=== PATIENT | female | born 1970 | race Caucasian/White ===

== ENCOUNTER 2018-11-22 09:12 | Day surgery (SDC) | payer OTHER, SELFPAY ==
--- NOTE | 2018-11-22 | PATH_ITS ---
[facility] Accession Number: [id number] . 01 Material submitted: . PART A: cecum - CECAL POLYP PART B: colon - POLYP AT 60 CM PART C: colon - POLYP AT 40 CM PART D: colon - POLYP AT 15 CM X2 . 01 Clinical history: . SCREENING COLONOSCOPY . 02 Diagnosis: A. Cecum, Polyp, Biopsy: Tubular adenoma. . B. Colon, Polyp at 60 cm, Biopsy: Colonic mucosa with no diagnostic abnormality, consistent with polypoid redundancy. Negative for dysplasia and malignancy. . C. Colon, Polyp at 40 cm, Biopsy: Hyperplastic polyp. . D. Colon, Polyp at 15 cm x2, Biopsy: Hyperplastic polyp. Mucosal prolapse polyp. MRV/11/25/2018 . 02 Electronically signed: . Patricia Suazo MD, Pathologist NPI- [id number] . 01 Gross description: . (A) Received in formalin, labeled cecum polyp, is a fragment of strong tissue (0.5 x 0.4 x 0.2 cm). Entirely submitted in cassette A1. (B) Received in formalin, labeled polyp @ 60 cm, is a fragment of montes-strong tissue (0.4 x 0.3 by less than 0.1 cm. Entirely submitted in cassette B1. (C) Received in formalin, labeled polyp @ 40 cm, are two fragments of montes-strong tissue (each approximately 0.3 x 0.2 x 0.1 cm). Entirely submitted in cassette C1. (D) Received in formalin, labeled polyp @ 15 cm, are two fragments of montes-strong tissue (each approximately 0.4 x 0.3 x 0.1 cm). Entirely submitted in cassette D1. ([id number]) /MRV . 02 Pathologist provided ICD-10: D12.0 . 02 CPT . 002080, 051150, 472254, [id number] Performed at: [facility] [address] [address], [place], [place] [id number] MD Willie Matta MD Phone: [phone] Performed at: [id number] [place], [place] [id number] MD Patricia Suazo MD Phone: [phone]
[2018-11-22] MEDS: SODIUM CHLORIDE 0.9% 1,000 ML 100 ML IV (10:03)
[2018-11-22 10:26] VITALS: BP 133/88; PULSE 76; RESP 14; TEMP 36.2; O2SAT 100; BMI 36.8
--- NOTE | 2018-11-22 11:13 | PM.HP.1 ---
History of Present Illness Date Patient Seen: 11/22/18 Time Patient Seen: 11:14 Chief complaint: [id number] SCREENING COLONOSCOPY Narrative: Asymptomatic patient here for her 1st colonoscopy. Patient History Surgical History Status post delivery Family History (Updated 11/22/18 @ 10:09 by Daniella Daugherty RN) Father Kidney failure Mother CAD (coronary artery disease) Hyperlipidemia Grandmother Colon cancer Social History household members: significant other and children Family & Social History Family History Father Kidney failure Mother CAD (coronary artery disease) Hyperlipidemia Grandmother Colon cancer Social History: household members significant other,children Meds Home Medications Medication Instructions Recorded Confirmed Type methimazole [Tapazole] 10 mg PO QDAY #90 tab 03/06/16 11/22/18 Rx albuterol sulfate HFA 90 2 puff INHALATION Q4HP PRN #1 inh 11/27/17 11/22/18 Rx mcg/actuation aerosol inhaler lisinopril 20 mg PO DAILY 11/22/18 11/22/18 History Allergies Allergy/AdvReac Type Severity Reaction Status Date / Time No Known Drug Allergies Allergy Verified 11/22/18 10:09 Review of Systems Review of Systems All systems reviewed & are unremarkable except as noted in HPI and below Exam Vital Signs (past 8 hours): - 11/22/18 10:26 Temperature 97.1 F L Pulse Rate 76 Respiratory Rate 14 Blood Pressure 133/88 Pulse Oximetry 100 Oxygen Delivery Method Room Air Narrative Exam Narrative: Patient is alert and oriented Vital signs stable Lungs are clear with no rales or wheezes Heart regular rhythm no murmur Abdomen soft no organomegaly no tenderness Rectal will be done at colonoscopy Assessment & Plan Assessment & Plan narrative: Patient is here for her 1st screening colonoscopy has no melena no hematochezia no abdominal pain she understands the procedure and has no further questions
--- NOTE | 2018-11-22 11:55 | PM.OP.ENDO ---
Operative Date/Time/Diagnoses Date of procedure: 11/22/18 Time of procedure: 11:56 Pre-op diagnosis: Screening colonoscopy Post-op diagnosis: other (Multiple polyps from the anal verge to 15 cm to 40 60 and 1 in the cecum these were all removed and submitted they are all 2-3 mm polyps) Procedure & Clinicians Study performed: Total colonoscopy to the cecum and multiple polypectomies Same procedure as scheduled: Yes Surgeon: Gerald Martínez Procedure Notes SCOAP/Timeout: This was done Procedure in detail: The patient was properly identified during surgical pause the flexible fiberoptic colonoscope inserted transanally to the cecum patient had numerous polyps 5 in number ranging from the cecum to 60 cm 40 cm 15 cm and 2 cm from the anal verge. These were all removed and submitted. There were all very small 2 mm polyps. The procedure was very well tolerated with minimal anesthesia required. 2 mg of Versed and 100 micro g of fentanyl were utilized. Scope withdrawal time: 15 Sedation minutes: 25 Findings: polyp Specimen(s): other (Polyps at 2 cm 15 cm 40 cm 60 cm and cecum were all submitted these are all 2-3 mm polyps) Complications: none Impression: Multiple polyps throughout the colon. Recommendations: Colonscopy in 3 years Disposition: PACU
[2018-11-22] MEDS: fentaNYL 250 MCG/5 ML INJ IV (11:57)
[2018-11-22] MEDS: MIDAZOLAM 5 MG/5 ML VIAL IV (11:58)
[2018-11-22 11:59] VITALS: BP 114/74; PULSE 70; RESP 15; TEMP 36.9; O2SAT 99
== END 2018-11-22 12:20 | disposition home or self-care (01) ==
PROVIDERS: Family Provider Family Medicine; PCP Family Medicine; Visit Provider Surgery
PROC: 0DJD8ZZ Inspection of Lower Intestinal Tract, Via Natural or Artificial Opening Endoscopic (ICD-10-PCS; CPT 45378; principal; 2018-11-22 10:15)
DX: Z12.11 Encounter for screening for malignant neoplasm of colon (principal); D12.0 Benign neoplasm of cecum; K63.5 Polyp of colon
CPT/HCPCS: 45380; 99152; J2250; J3010

== ENCOUNTER → 2020-03-01 08:26 | Outpatient (CLI) | payer OTHER, SELFPAY ==
[2020-03-01 09:18] LABS: Alanine Aminotransferase 28 IU/L (<35); Albumin 4.3 g/dL (3.5-5.0); Albumin Globulin Ratio 1.4 (1.0-2.8); Alkaline Phosphatase 43 U/L (38-126); Aspartate Aminotransferase 24 IU/L (14-36); BUN Creatinine Ratio 19.1 (6-22); Bilirubin Total 0.7 mg/dL (0.2-1.3); Blood Urea Nitrogen 13 mg/dL (7-17); Calcium 9.9 mg/dL (8.4-10.2); Carbon Dioxide 30 mmol/L (22-32); Chloride 98 mmol/L (98-107); Cholesterol 208 mg/dL (140-199); Estimated Glomerular Filt Rate > 60.0 mL/min (>60); Globulin 3.1 g/dL (1.7-4.1); Glucose 91 mg/dL (70-100); HDL Cholesterol 47 mg/dL (40-60); HEMOLYSIS < 15 (0-50); LDL Cholesterol Calculated 116 mg/dL (<100); Sodium 134 mmol/L (137-145); Total Protein 7.4 g/dL (6.3-8.2); Triglycerides 226 mg/dL (35-150)
[2020-03-01 09:19] LABS: Creatinine Urine Random 33.5 mg/dL
[2020-03-01 09:24] LABS: Microalbumin Urine Random < 0.6 mg/dL (0-1.6)
[2020-03-01 09:27] LABS: Hemoglobin A1C% w Est Avg Glu 5.4 % (4.0-6.0)
== END ==
PROVIDERS: Family Provider Family Medicine; PCP Family Medicine; Referring Provider Family Medicine; Visit Provider Family Medicine
DX: E78.5 Hyperlipidemia, unspecified (principal); F32.9 Major depressive disorder, single episode, unspecified; F41.9 Anxiety disorder, unspecified; I10 Essential (primary) hypertension; R53.83 Other fatigue
CPT/HCPCS: 36415; 80053; 80061; 82043; 82570; 83036; 84443

== ENCOUNTER → 2020-07-07 16:28 | Outpatient (CLI) | payer OTHER, SELFPAY ==
--- NOTE | 2020-07-07 16:30 | DI.MRI.S_ITS ---
PROCEDURE: MR ANKLE LT WO CON INDICATIONS: Pain in left ankle and joints TECHNIQUE: Noncontrast sagittal T1 spin echo and T2 fast spin echo with fat saturation, axial proton density fast spin echo and T2 fast spin echo with fat saturation, coronal T1 spin echo and T2 fast spin echo with fat saturation through the ankle/hindfoot. COMPARISON: [facility] [place], CR, XR ANKLE 3 VIEWS WEIGHT BEARING LEFT, 06/23/2020, 16:08. FINDINGS: Image quality: Excellent. Bones and joints: There is periarticular bone marrow edema along the medial aspect of the tibiotalar joint. Associated cortical irregularity is demonstrated along the tibia compatible with an osteochondral lesion. There is an associated subcortical curvilinear low signal intensity line along the medial talar dome. No associated depressed fracture. There is mild bone marrow edema along the lateral aspect of the calcaneus likely representing reactive changes. No hindfoot coalitions. There is mild midfoot degeneration with scattered foci of subchondral edema. No pathologic joint effusions. Medial structures: The posterior tibialis, flexor digitorum longus, and flexor hallucis longus tendons are intact with a small amount of tenosynovial fluid. The posterior tibial neurovascular bundle appears normal within the tarsal tunnel, without extrinsic mass effect. The deltoid and spring ligament components appear intact. Lateral structures: The anterior talofibular, calcaneofibular, and posterior talofibular ligaments appear intact. More superiorly, the anterior and posterior tibiofibular ligaments appear intact, as is the intermalleolar ligament. The tibiofibular syndesmosis is normal in width at 2 mm or less. The peroneus longus and brevis tendons demonstrate normal location and morphology with mild peritendinous edema and trace tenosynovial fluid. Adjacent bony peroneal tubercle and retrotrochlear prominence are normal in size with mild associated bone marrow edema. The sinus tarsi demonstrates normal fatty signal, without edema, fibrosis, or cyst formation. The calcaneonavicular and calcaneocuboid components of the bifurcate ligament appear intact. The dorsal calcaneocuboid ligament appears intact. Anterior structures: The tibialis anterior, extensor hallucis longus, and extensor digitorum longus tendons appear intact. The dorsal talonavicular ligament appears intact. Posterior and plantar structures: Achilles tendon is intact. There is thickening of the central cord of the plantar fascia with mild partial tearing at its origin. Mild associated bone marrow edema is demonstrated in the plantar aspect of the calcaneus. No abductor digiti quinti muscle atrophy to suggest Cox neuropathy. IMPRESSION: 1. Periarticular bone marrow edema within the medial tibiotalar joint with a an associated small osteochondral lesion in the tibia. No displaced or unstable fragment identified. 2. A small associated osteochondral lesion of the medial talar dome is not excluded. An associated subcortical low signal intensity line may reflect a nondepressed subcortical impaction fracture. 3. Plantar fasciitis involving the central cord of the plantar fascia with mild partial tearing at its origin and associated reactive bone marrow edema in the calcaneus. 4. Mild edema within the lateral calcaneus along the peroneal tendons likely represents reactive changes secondary to peritendinitis. 5. Mild midfoot degeneration. Dictated by: Willie Henderson M.D. on 07/08/2020 at 10:00 Approved by: Willie Henderson M.D. on 07/08/2020 at 11:11
== END ==
PROVIDERS: Family Provider Family Medicine; PCP Family Medicine; Referring Provider Orthopaedic Surgery Foot and Ankle Surgery; Visit Provider Orthopaedic Surgery Foot and Ankle Surgery
DX: M25.572 Pain in left ankle and joints of left foot (principal); M93.872 Other specified osteochondropathies, left ankle and foot; M72.2 Plantar fascial fibromatosis; M19.072 Primary osteoarthritis, left ankle and foot
CPT/HCPCS: 73721

== ENCOUNTER → 2020-10-23 09:31 | Outpatient (CLI) | payer OTHER, SELFPAY | PROVIDERS: Family Provider Family Medicine; PCP Family Medicine; Visit Provider Physician Assistant | DX: N34.3 Urethral syndrome, unspecified (principal) | CPT/HCPCS: 87086 ==

== ENCOUNTER → 2020-11-27 09:10 | Outpatient (CLI) | payer OTHER, SELFPAY ==
[2020-11-27 10:17] LABS: Alanine Aminotransferase 26 IU/L (<35); Albumin 4.4 g/dL (3.5-5.0); Albumin Globulin Ratio 1.4 (1.0-2.8); Alkaline Phosphatase 44 U/L (38-126); Aspartate Aminotransferase 28 IU/L (14-36); BUN Creatinine Ratio 18.8 (6-22); Bilirubin Total 0.5 mg/dL (0.2-1.3); Blood Urea Nitrogen 12 mg/dL (7-17); Calcium 9.3 mg/dL (8.4-10.2); Carbon Dioxide 28 mmol/L (22-32); Chloride 104 mmol/L (98-107); Cholesterol 208 mg/dL (140-199); Estimated Glomerular Filt Rate > 60.0 mL/min (>60); Globulin 3.2 g/dL (1.7-4.1); Glucose 91 mg/dL (70-100); HDL Cholesterol 50 mg/dL (40-60); HEMOLYSIS < 15 (0-50); LDL Cholesterol Calculated 131 mg/dL (<100); Sodium 137 mmol/L (137-145); Total Protein 7.6 g/dL (6.3-8.2); Triglycerides 136 mg/dL (35-150)
[2020-11-27 10:31] LABS: Free T3, Triiodothyronine Free 3.86 pg/mL (2.77-5.27)
[2020-11-27 10:44] LABS: TSH w/ Reflex to FT4 1.14 uIU/mL (0.47-4.68)
== END ==
PROVIDERS: Family Provider Family Medicine; PCP Family Medicine; Referring Provider Family Medicine; Visit Provider Family Medicine
DX: E05.90 Thyrotoxicosis, unspecified without thyrotoxic crisis or storm (principal); I10 Essential (primary) hypertension; E78.5 Hyperlipidemia, unspecified
CPT/HCPCS: 36415; 80053; 80061; 84439; 84443; 84481

== ENCOUNTER → 2021-11-22 10:41 | Outpatient (CLI) | payer OTHER, SELFPAY ==
[2021-11-22 12:33] LABS: Hematocrit 37.8 % (36-46); Mean Corpuscular HGB Conc 34.3 % (30-36); Mean Corpuscular Volume 84.5 fL (80-100); Platelet Count 265 X10^3/uL (150-400); Red Blood Cell Count 4.47 X10^6/uL (4.0-5.2); Red Cell Distribution Width 13.9 % (11.6-14.8); White Blood Cell Count 5.2 X10^3/uL (4.5-11.0)
[2021-11-22 12:35] LABS: Creatinine Urine Random 52.5 mg/dL
[2021-11-22 12:53] LABS: Alanine Aminotransferase 22 IU/L (<35); Albumin 4.5 g/dL (3.5-5.0); Albumin Globulin Ratio 1.5 (1.0-2.8); Alkaline Phosphatase 46 U/L (38-126); Aspartate Aminotransferase 34 IU/L (14-36); BUN Creatinine Ratio 16.4 (6-22); Bilirubin Total 0.6 mg/dL (0.2-1.3); Blood Urea Nitrogen 11 mg/dL (7-17); Calcium 9.1 mg/dL (8.4-10.2); Carbon Dioxide 27 mmol/L (22-32); Chloride 102 mmol/L (98-107); Cholesterol 183 mg/dL (140-199); Estimated Glomerular Filt Rate > 60 mL/min (>60); Glucose 84 mg/dL (70-100); HDL Cholesterol 39 mg/dL (40-60); HEMOLYSIS < 15 (0-50); LDL Cholesterol Calculated 125 mg/dL (<100); Potassium 3.9 mmol/L (3.4-5.1); Sodium 139 mmol/L (137-145); Total Protein 7.5 g/dL (6.3-8.2); Triglycerides 94 mg/dL (35-150)
[2021-11-22 13:06] LABS: HCG Quantitative /Beta subunit < 2.4 mIU/mL
[2021-11-22 13:57] LABS: Free T3, Triiodothyronine Free 3.26 pg/mL (2.77-5.27); Free T4, Direct Thyroxine 1.07 ng/dL (0.78-2.19)
[2021-11-22 14:10] LABS: Thyroid Stimulating Hormone 1.17 uIU/mL (0.47-4.68)
[2021-11-22 16:40] LABS: Follicle Stimulating Hormone 43.4 mIU/mL
== END ==
PROVIDERS: Family Provider Family Medicine; PCP Family Medicine; Referring Provider Nurse Practitioner; Visit Provider Nurse Practitioner
DX: Z00.00 Encounter for general adult medical examination without abnormal findings (principal); N91.2 Amenorrhea, unspecified
CPT/HCPCS: 36415; 80053; 80061; 82043; 82570; 83001; 84439; 84443; 84481; 84702; 85027

== ENCOUNTER → 2022-01-18 07:04 | Outpatient (CLI) | payer OTHER, SELFPAY ==
[2022-01-18 20:27] LABS: COVID19 - ORCAS (NP or Nasal) Negative (Negative)
== END ==
PROVIDERS: Family Provider Family Medicine; PCP Family Medicine; Visit Provider Family Medicine
DX: Z20.822 Contact with and (suspected) exposure to COVID-19 (principal); Z01.812 Encounter for preprocedural laboratory examination
CPT/HCPCS: U0003

== ENCOUNTER 2022-01-20 10:15 | Day surgery (SDC) | payer OTHER, SELFPAY ==
[2022-01-20 10:47] VITALS: BP 133/94; PULSE 68; RESP 16; TEMP 36.3; O2SAT 100; BMI 33.6
[2022-01-20] MEDS: LACTATED RINGERS 1,000 ML 42 ML IV (11:12)
--- NOTE | 2022-01-20 11:26 | P.HP_ITS ---
History of Present Illness History of Present Illness Date Patient Seen: 01/20/22 Time Patient Seen: 11:26 Chief complaint: SCREENING COLONOSCOPY Narrative: Last colonoscopy 3 years ago. Six polyps were found at that time. Family history for colon polyps but no cancer. No current symptoms Patient History Medical History Asthma Depression (09/04/13) Hyperlipidemia (09/04/13) Hypertension (09/04/13) Hyperthyroidism Surgical History Status post delivery Family & Social History Family History Father Kidney failure Mother CAD (coronary artery disease) Hyperlipidemia Grandmother Colon cancer Social History: household members significant other,children Tobacco & Substance use: Smoking Status Never smoker alcohol intake current alcohol intake frequency a few times a month Substance Use Type does not use Meds Home Medications and Allergies Home Medications Medication Instructions Recorded Confirmed Type fluticasone propionate 115 2 puff inhalation BID #8 grams 03/08/20 01/20/22 Rx mcg-salmeterol 21 mcg/actuation HFA inhaler (Advair HFA) albuterol sulfate 90 mcg/actuation See Rx Instructions .Route 09/13/21 01/20/22 Rx aerosol inhaler .COMPLEX #8.5 grams atorvastatin 10 mg tablet See Rx Instructions .Route 09/15/21 01/20/22 Rx .COMPLEX #90 tabs methimazole 10 mg tablet 10 mg PO DAILY #30 tabs 10/06/21 01/20/22 Rx lisinopril 30 mg tablet 30 mg PO .qhs #90 tabs 11/18/21 01/20/22 Rx albuterol sulfate 2.5 mg/3 mL 2.5 mg (3 mL) inhalation Q4-6H PRN 11/22/21 01/20/22 Rx (0.083 %) solution for nebulization shortness of breath or wheezing, coughing #90 mL Allergies Allergy/AdvReac Type Severity Reaction Status Date / Time No Known Drug Allergies Allergy Verified 11/22/21 09:26 Review of Systems Review of Systems ROS: Yes All systems reviewed with the patient and are negative except as otherwise documented Exam Vital Signs (past 8 hours): - 01/20/22 10:47 Temperature 97.4 F L Pulse Rate 68 Respiratory Rate 16 Blood Pressure 133/94 H Pulse Oximetry 100 Oxygen Delivery Method Room Air Oxygen Delivery Method Room Air Const General: cooperative and healthy appearing Nutritional Appearance: average body habitus [facility] Head: normal to inspection, normocephalic and atraumatic Eyes General: appearance normal, both eyes and all related structures Sclera: sclerae normal Neck Neck: trachea midline Chest Chest: normal inspection of the chest Resp Effort & Inspection: normal respiratory effort and able to speak in complete sentences Cardio Rate: regular rate Rhythm: regular rhythm GI Inspection: normal to inspection Palpation: soft Skin General: no rashes or lesions noted Hair: normal Neuro General: patient alert, patient awake and patient oriented x3 Cranial Nerves: tongue midline Cognition: normal cognition Extrem General: full ROM Psych Appearance: grossly normal Mental Status: mental status grossly normal Judgment: judgment good Assessment & Plan Assessment & Plan narrative: Diagnostic colonoscopy with history of colon polyps. Moderate sedation COVID-19 COVID-19 status: Negative Time Spent With Patient Time with patient: less than 30 minutes Critical Care time: I spent a total of [] minutes of critical care time on this patient's care today; this time is exclusive of procedural time.
[2022-01-20] MEDS: fentaNYL 100 MCG/2 ML INJ IV (11:39)
[2022-01-20] MEDS: MIDAZOLAM 5 MG/5 ML VIAL 4 MG IV (11:39)
--- NOTE | 2022-01-20 11:46 | PM.OP.COLON ---
Operative Date/Time/Diagnoses Date of procedure: 01/20/22 Time of procedure: 11:46 Pre-op diagnosis: History of colon polyps Post-op diagnosis: same Procedure & Clinicians Study performed: Colonoscopy with moderate sedation Same procedure as scheduled: Yes Indications: History of colon polyps Surgeon: Mayi Castro Procedure Notes Procedure in detail: Preop diagnosis: History of colon polyps Postop diagnosis: Same Operative procedure: Colonoscopy with moderate sedation Surgeon: Jerilyn Castro MD Findings: Normal colonoscopy, no diverticulosis no polyps Anesthetic: Fentanyl 100 mcg, Versed 4 mg Procedure: Patient placed in a lateral position. Rectal exam performed showing normal tone no masses. Colonoscope inserted into the rectum and advanced to the ileocecal valve with minimal difficulty. Insufflation extraction scope and the above findings. Retroflex was included Impression: Normal colonoscopy. No polyps, no diverticuli. Plan: Repeat colonoscopy in 5 years due to self history of colon polyps Sedation minutes: 8 Specimen(s): none sent Complications: none Post-procedure Recommendations: Colonoscopy in 5 years Follow up: as needed Disposition: PACU
[2022-01-20 11:49] VITALS: BP 160/92; PULSE 63; RESP 14; TEMP 36.7; O2SAT 96
[2022-01-20 11:56] VITALS: BP 156/86; PULSE 56; RESP 14; O2SAT 98
[2022-01-20 12:00] VITALS: BP 139/89; PULSE 54; RESP 16; O2SAT 99
[2022-01-20 12:03] VITALS: BP 127/84; PULSE 59; RESP 14; TEMP 36.7; O2SAT 97
[2022-01-20] MEDS: ONDANSETRON 4 MG ODT SL (12:52)
== END 2022-01-20 12:40 | disposition home or self-care (01) ==
PROVIDERS: Family Provider Family Medicine; PCP Family Medicine; Referring Provider Surgery; Visit Provider Surgery
PROC: 0DJD8ZZ Inspection of Lower Intestinal Tract, Via Natural or Artificial Opening Endoscopic (ICD-10-PCS; CPT 45378; principal; 2022-01-20 11:30)
DX: Z12.11 Encounter for screening for malignant neoplasm of colon (principal); Z86.010 Personal history of colon polyps; I10 Essential (primary) hypertension; J45.909 Unspecified asthma, uncomplicated
CPT/HCPCS: 45378; 99152; J2250; J3010

== ENCOUNTER → 2022-03-18 13:40 | Outpatient (CLI) | payer OTHER, SELFPAY ==
[2022-03-18 16:06] LABS: Influenza A - CEPHEID Flu A NEGATIVE (NEGATIVE); Influenza B - CEPHEID Flu B NEGATIVE (NEGATIVE); Respiratory Syncytial Virus Negative (Negative)
[2022-03-18 16:08] LABS: COVID-19 CEPHEID 4-PLEX PCR Negative (Negative)
== END ==
PROVIDERS: Family Provider Family Medicine; PCP Family Medicine; Visit Provider Nurse Practitioner Family
DX: J06.9 Acute upper respiratory infection, unspecified (principal); Z20.822 Contact with and (suspected) exposure to COVID-19
CPT/HCPCS: 0241U

== ENCOUNTER → 2022-06-14 12:32 | Outpatient (CLI) | payer OTHER, SELFPAY ==
[2022-06-14 19:39] LABS: Blood Urea Nitrogen 20 mg/dL (7-17); Calcium 9.2 mg/dL (8.4-10.2); Carbon Dioxide 25 mmol/L (22-32); Chloride 98 mmol/L (98-107); Estimated Glomerular Filt Rate > 60 mL/min (>60); Glucose 87 mg/dL (70-100); Sodium 133 mmol/L (137-145)
[2022-06-14 19:44] LABS: HEMOLYSIS 66 (0-50); Potassium 3.9 mmol/L (3.4-5.1)
[2022-06-14 19:52] LABS: Add Manual Diff / Slide Review NO; Basophils Absolute Auto 100 /uL (0-100); Basophils Percent Auto 1.1 % (0-2); Eosinophils Absolute Auto 300 /uL (0-450); Eosinophils Percent Auto 3.8 % (2-4); Hematocrit 43.6 % (36-46); Hemoglobin 14.4 g/dL (12.0-16.0); Lymphocytes Absolute Auto 1800 /uL (1100-4500); Lymphocytes Percent Auto 22.9 % (25-40); Mean Corpuscular HGB Conc 33.1 % (30-36); Mean Corpuscular Hemoglobin 28.2 PG (26-34); Mean Corpuscular Volume 85.2 fL (80-100); Monocytes Absolute Auto 600 /uL (0-900); Monocytes Percent Auto 7.2 % (3-14); Neutrophils Absolute Auto 5100 /uL (1500-7000); Platelet Count 328 X10^3/uL (150-400); Red Blood Cell Count 5.11 X10^6/uL (4.0-5.2); Red Cell Distribution Width 13.9 % (11.6-14.8); White Blood Cell Count 7.9 X10^3/uL (4.5-11.0)
[2022-06-14 20:01] LABS: Thyroid Stimulating Hormone 1.23 uIU/mL (0.47-4.68)
== END ==
PROVIDERS: Physician Assistant; Family Provider Family Medicine; PCP Physician Assistant Medical; Visit Provider Family Medicine
DX: I10 Essential (primary) hypertension (principal); F41.9 Anxiety disorder, unspecified; F41.0 Panic disorder [episodic paroxysmal anxiety]; E05.90 Thyrotoxicosis, unspecified without thyrotoxic crisis or storm; E78.5 Hyperlipidemia, unspecified; R53.83 Other fatigue
CPT/HCPCS: 80048; 84439; 84443; 85025

== ENCOUNTER → 2022-06-26 14:21 | Outpatient (CLI) | payer OTHER, SELFPAY ==
[2022-06-26 19:13] LABS: Alanine Aminotransferase 27 IU/L (<35); Albumin 4.2 g/dL (3.5-5.0); Albumin Globulin Ratio 1.6 (1.0-2.8); Alkaline Phosphatase 48 U/L (38-126); Aspartate Aminotransferase 23 IU/L (14-36); BUN Creatinine Ratio 17.1 (6-22); Bilirubin Total 0.6 mg/dL (0.2-1.3); Blood Urea Nitrogen 12 mg/dL (7-17); Carbon Dioxide 27 mmol/L (22-32); Chloride 100 mmol/L (98-107); Estimated Glomerular Filt Rate > 60 mL/min (>60); Globulin 2.7 g/dL (1.7-4.1); Glucose 83 mg/dL (70-100); HEMOLYSIS < 15 (0-50); Potassium 4.2 mmol/L (3.4-5.1); Sodium 137 mmol/L (137-145); Total Protein 6.9 g/dL (6.3-8.2)
== END ==
PROVIDERS: Family Provider Family Medicine; PCP Physician Assistant Medical; Visit Provider Physician Assistant
DX: E05.90 Thyrotoxicosis, unspecified without thyrotoxic crisis or storm (principal); E78.5 Hyperlipidemia, unspecified; I10 Essential (primary) hypertension; R53.83 Other fatigue
CPT/HCPCS: 80053

== ENCOUNTER → 2022-11-15 09:24 | Outpatient (CLI) | payer OTHER, SELFPAY ==
[2022-11-15 11:13] LABS: Alanine Aminotransferase 22 IU/L (<35); Albumin 4.3 g/dL (3.5-5.0); Albumin Globulin Ratio 1.2 (1.0-2.8); Alkaline Phosphatase 53 U/L (38-126); Aspartate Aminotransferase 35 IU/L (14-36); BUN Creatinine Ratio 21.4 (6-22); Bilirubin Total 0.8 mg/dL (0.2-1.3); Blood Urea Nitrogen 12 mg/dL (7-17); Calcium 9.3 mg/dL (8.4-10.2); Carbon Dioxide 20 mmol/L (22-32); Chloride 104 mmol/L (98-107); Cholesterol 184 mg/dL (140-199); Estimated Glomerular Filt Rate > 60 mL/min (>60); Globulin 3.5 g/dL (1.7-4.1); Glucose 79 mg/dL (70-100); HDL Cholesterol 48 mg/dL (40-60); HEMOLYSIS 49 (0-50); LDL Cholesterol Calculated 118 mg/dL (<100); Potassium 3.9 mmol/L (3.4-5.1); Sodium 135 mmol/L (137-145); Total Protein 7.8 g/dL (6.3-8.2); Triglycerides 91 mg/dL (35-150)
[2022-11-15 11:27] LABS: Free T3, Triiodothyronine Free 4.18 pg/mL (2.77-5.27); Free T4, Direct Thyroxine 1.23 ng/dL (0.78-2.19)
== END ==
PROVIDERS: Family Provider Family Medicine; PCP Family Medicine; Referring Provider Physician Assistant; Visit Provider Physician Assistant
DX: E78.5 Hyperlipidemia, unspecified (principal); I10 Essential (primary) hypertension
CPT/HCPCS: 36415; 80053; 80061; 84439; 84443; 84481

== ENCOUNTER → 2022-11-29 10:43 | Outpatient (CLI) | payer OTHER, SELFPAY ==
--- NOTE | 2022-11-29 | DI.MG.S_ITS ---
BILATERAL DIGITAL SCREENING MAMMOGRAM 3D/2D WITH CAD: 11/29/2022 CLINICAL: Routine screening. Comparison is made to exams dated: 11/10/2021 mammogram, 11/13/2018 mammogram, 11/01/2016 mammogram, and 07/13/2015 mammogram - [facility]. There are scattered areas of fibroglandular density in both breasts (category b / 25%-50% glandular tissue). Current study was also evaluated with a Computer Aided Detection (CAD) system. No significant masses, calcifications, or other findings are seen in either breast. There has been no significant interval change. IMPRESSION: NEGATIVE There is no mammographic evidence of malignancy. A 1 year screening mammogram is recommended. Based on the Tyrer Cuzick model (a risk assessment model) the patient's lifetime risk is 5.8% and her 10 year risk is 1.4%. According to the ACR, ACS, and NCCN guidelines, an annual breast MRI exam along with mammogram is recommended if the patient's lifetime risk is 20% or greater. This exam was interpreted at Station ID: [id number]. NOTE: For mammograms, a report in lay terms will be sent to the patient. Approximately 15% of breast malignancies will not be visualized mammographically. In the management of a palpable breast mass, a negative mammogram must not discourage biopsy of a clinically suspicious lesion. Electronically Signed By: Kalen hancock/berta:11/29/2022 13:57:51 letter sent: Normal Exam ACR BI-RADS Category 1: Negative 3341F
--- NOTE | 2022-11-29 10:44 | DI.US.S_ITS ---
PROCEDURE: US THYROID INDICATIONS: HYPERTHYROIDISM TECHNIQUE: Real-time scanning was performed of the thyroid gland, with image documentation. COMPARISON: None. FINDINGS: Right: Thyroid lobe measures 5.5 x 2.2 x 2.0 cm, and is homogeneous in echotexture. Left: Thyroid lobe measures 6.0 x 2.1 x 1.5 cm, and is homogenous in echotexture. Isthmus: 5 mm thick. Nodule number: 1 Location: Left inferior Size: 1.8 x 1.3 x 1.4 cm. Composition: Solid Echogenicity: Hypoechoic Shape: wider than tall. Margins: Smooth Echogenic foci: None Total points: 4 ACR TI-RADS category: 4 Nodule number: 2 Location: Left superior Size: 0.6 x 0.5 x 0.6 cm. Composition: Solid Echogenicity: Isoechoic Shape: wider than tall. Margins: Smooth Echogenic foci: None Total points: 3 ACR TI-RADS category: 3 IMPRESSION: 1.8 cm category 4 nodule, FNA advised. Subcentimeter category 3 nodule, no follow-up necessary ACR TI-RADS definitions and recommendations: TI-RADS 1 (benign): 0 points. FNA not needed. TI-RADS 2 (not suspicious): 2 points. FNA not needed. TI-RADS 3 (mildly suspicious): 3 points. * FNA if 2.5 cm or larger, follow up if 1.5 cm or larger (at 1, 3, and 5 years). TI-RADS 4 (moderately suspicious): 4-6 points. * FNA if 1.5 cm or larger, follow up if 1 cm or larger (at 1, 2, 3, and 5 years). TI-RADS 5 (highly suspicious): 7 points or more. * FNA if 1 cm or larger, follow up if 0.5 cm or larger (every year for 5 years). Approved by: Alessandro Becerril M.D. on 11/29/2022 at 13:49
== END ==
PROVIDERS: Family Provider Family Medicine; PCP Family Medicine; Referring Provider Physician Assistant; Visit Provider Physician Assistant
DX: Z12.31 Encounter for screening mammogram for malignant neoplasm of breast (principal); E05.90 Thyrotoxicosis, unspecified without thyrotoxic crisis or storm; E04.2 Nontoxic multinodular goiter
CPT/HCPCS: 76536; 77063; 77067

== ENCOUNTER → 2022-12-05 14:34 | Outpatient (CLI) | payer OTHER, SELFPAY ==
[2022-12-05 21:04] LABS: Alanine Aminotransferase 23 IU/L (<35); Albumin 4.5 g/dL (3.5-5.0); Albumin Globulin Ratio 1.5 (1.0-2.8); Alkaline Phosphatase 46 U/L (38-126); Aspartate Aminotransferase 27 IU/L (14-36); BUN Creatinine Ratio 16.7 (6-22); Bilirubin Total 0.6 mg/dL (0.2-1.3); Blood Urea Nitrogen 10 mg/dL (7-17); Calcium 9.7 mg/dL (8.4-10.2); Carbon Dioxide 30 mmol/L (22-32); Chloride 100 mmol/L (98-107); Estimated Glomerular Filt Rate > 60 mL/min (>60); Glucose 97 mg/dL (70-100); HEMOLYSIS < 15 (0-50); Potassium 3.7 mmol/L (3.4-5.1); Sodium 138 mmol/L (137-145); Total Protein 7.5 g/dL (6.3-8.2)
[2022-12-05 21:30] LABS: Free T3, Triiodothyronine Free 4.47 pg/mL (2.77-5.27); Free T4, Direct Thyroxine 1.11 ng/dL (0.78-2.19); T4 Total Thyroxine 7.77 ug/dL (5.5-11.0)
[2022-12-05 21:42] LABS: TSH w/ Reflex to FT4 1.35 uIU/mL (0.47-4.68); Thyroid Stimulating Hormone 1.35 uIU/mL (0.47-4.68)
[2022-12-07 07:24] LABS: Triiodothyronine T3 Total 106 ng/dL (71-180)
[2022-12-07 15:36] LABS: Anti Thyroglobulin Antibody <1.0 IU/mL (0.0-0.9); Thyroid Peroxidase Antibodies 10 IU/mL (0-34)
[2022-12-08 18:33] LABS: Thyroid Stimulating Immunoglob < 0.10 IU/L (0.00-0.55)
== END ==
PROVIDERS: Family Provider Family Medicine; PCP Family Medicine; Visit Provider Family Medicine
DX: E05.90 Thyrotoxicosis, unspecified without thyrotoxic crisis or storm (principal); E87.1 Hypo-osmolality and hyponatremia; I10 Essential (primary) hypertension; R00.2 Palpitations; R25.1 Tremor, unspecified
CPT/HCPCS: 80053; 84436; 84439; 84443; 84445; 84480; 84481; 86376; 86800

== ENCOUNTER → 2022-12-13 12:51 | Outpatient (CLI) | payer OTHER, SELFPAY ==
--- NOTE | 2022-12-13 | PATH_ITS ---
Note [facility] Accession Number: [id number] TESTS RESULT FLAG UNITS REF RANGE LAB Clinician Provided Cytology Information No. of containers..01 Other (Miscellaneous) No. of containers..02 Previously Prepared Cytology Slide Source: INFERIOR LEFT THYROID NODULE DIAGNOSIS: INFERIOR LEFT THYROID NODULE INCONCLUSIVE. B[place]ES[place] CATEGORY III. ATYPIA OF UNDETERMINED SIGNIFICANCE. MOLECULAR STUDIES PENDING; RESULTS WILL BE REPORTED SEPARATELY. Pathologist ICD10: R89.6 Signed out by: Melissa Aden MD, Pathologist NPI- [id number] Performed by: Cheryl Morales, Strategic Partner Development Manager ([facility]) Gross description: 30 CC, RED, CLOUDY RECIEVED: IN CYTOLYT WITH 6 ALCOHOL FIXED AND 6 QUICK STAINED SLIDES ALSO 1 RNA VIAL WAS RECEIVED.VO /VDU 12/14/[address] [place] [address] FLAG LEGEND: L-Low Normal,H-High Normal,LL-Alert Low,HH-Alert High <-Panic Low,>-Panic High,A-Abnormal,AA-Critical Abnormal Performed at: 01 =[facility] [address], [place] [address] Willie Matta MD, Performed at: 01 [facility] [address], [place], [place] [id number] MD Willie Matta MD Phone: [phone]
--- NOTE | 2022-12-13 12:52 | DI.US.S_ITS ---
PROCEDURE: US FINE NEEDLE ASPIRATION INDICATIONS: NODULE TECHNIQUE: The indications, alternatives, benefits, risks, and complications of the procedure were explained to the patient. Written informed consent was obtained and placed in the chart. The thyroid region was examined sonographically and a site was chosen for ultrasound guided percutaneous sampling. The skin was prepared and draped in the usual fashion, and anesthetized with 1% lidocaine infiltrated from the skin down to the thyroid gland. Multiple passes were then performed, with contents emptied into an appropriate pathology specimen container. A bandage was applied to the area of access at completion of the study. COMPARISON: None. FINDINGS: Location(s) of lesion(s) sampled: Left inferior pole [place]: 25 gauge hypodermic needles. Number of passes: 6 Medications: 1% lidocaine for local anaesthesia. Complications: None. IMPRESSION: Successful ultrasound-guided thyroid nodule fine needle aspiration, with cytology results pending. Please see chart below for management recommendations based on cytology results. [facility] ReportingRecommendationsNon-diagnostic* Repeat US-guided FNA, with on-site cytology evaluation if possible. * Repeated non-diagnostic nodules without high suspicion US features: close observation vs surgical consult. * Consider surgery if nodule has high suspicion US features, grows >20% in 2 dimensions on followup, or patient has clinical risk factors for malignancy. Benign* If nodule has high suspicion US features: repeat US and FNA within 12 months. * If nodule has low to intermediate suspicion US features: repeat US at 12-24 months. If nodule grows (20% increase in at least 2 dimensions, with minimal increase of 2 mm or >50% change in volume), or development of new suspicious US features, then repeat FNA or continue followup. * If nodule has very low suspicion US features: followup US at >24 months. Atypia of undetermined significance, follicular lesion of undetermined significanceRepeat FNA, molecular testing, followup US, or surgical consult.Follicular neoplasm, suspicious for follicular neoplasmSurgical consult; also consider molecular testing. Suspicious for malignancySurgical consult.MalignantSurgical consult. Dictated by: Kemar Guerrero M.D. on 12/13/2022 at 14:14 Approved by: Kemar Guerrero M.D. on 12/13/2022 at 14:14
== END ==
PROVIDERS: Family Provider Family Medicine; PCP Family Medicine; Referring Provider Physician Assistant; Visit Provider Physician Assistant
DX: E04.1 Nontoxic single thyroid nodule (principal)
CPT/HCPCS: 10005

== ENCOUNTER → 2023-02-06 13:09 | Outpatient (CLI) | payer OTHER, SELFPAY ==
[2023-02-06 19:22] LABS: BUN Creatinine Ratio 20.5 (6-22); Blood Urea Nitrogen 17 mg/dL (7-17); Calcium 9.8 mg/dL (8.4-10.2); Carbon Dioxide 29 mmol/L (22-32); Chloride 98 mmol/L (98-107); Estimated Glomerular Filt Rate > 60 mL/min (>60); Glucose 100 mg/dL (70-100); HEMOLYSIS < 15 (0-50); Potassium 3.7 mmol/L (3.4-5.1); Sodium 138 mmol/L (137-145)
== END ==
PROVIDERS: Family Provider Family Medicine; PCP Family Medicine; Visit Provider Internal Medicine Cardiovascular Disease
DX: R00.2 Palpitations (principal); I10 Essential (primary) hypertension
CPT/HCPCS: 80048

== ENCOUNTER → 2023-02-16 08:15 | Outpatient (CLI) | payer OTHER, SELFPAY ==
--- NOTE | 2023-02-16 | DI.ECHO.S_ITS ---
[facility] +---------+ : : [address] : : : : [id number] : : : : Phone: [phone] Echocardiogram Report + + :Name: DARRYL GUERRIER Study Date: 02/16/2023 Height: 62 in : :[facility] ReadingLocation: Weight: 178 lb : : Gender: Female BSA: 1.8 m2 : :: 1970 Age: 52 yrs BP: 130/93 mmHg: :Reason For Study: Hypertension : :Ordering Physician: MEMO, : :NINA Performed By: Dahiana Thayer : :Referring: NINA HAMPTON : + + Interpretation Summary Normal sinus rhythm. Normal LV size and wall thickness; normal wall motion and LV systolic function. EF is 55-60%. Normal chamber sizes. No valvular abnormaities. No prior study available for comparison. Procedure: A two-dimensional transthoracic echocardiogram with color flow and Doppler was performed. The study quality was technically good. There is no prior echocardiogram noted for this patient. The patient was in normal sinus rhythm during the exam. Left Ventricle: The left ventricle is normal in size. The ejection fraction is estimated to be 55-60%. Diastolic parameters suggest a relaxation abnormality of the left ventricle, consistent with probable normal filling pressures. Right Ventricle: The right ventricle is normal in size and function. Atria: The left atrial size is normal. Right atrial size is normal. There is no Doppler evidence for an interatrial shunt. Mitral Valve: The mitral valve is normal. There is no mitral valve stenosis. There is trace mitral regurgitation. Aortic Valve: The aortic valve is trileaflet. The aortic valve opens well. There is no aortic valve stenosis. No aortic regurgitation is present. Tricuspid Valve: The tricuspid valve is normal. There is no tricuspid stenosis. There is trace tricuspid regurgitation. The right ventricular systolic pressure is estimated to be at least 16 mmHg based on an estimated right atrial pressure of 3 mm Hg. Pulmonic Valve: The pulmonic valve leaflets are thin and pliable; valve motion is normal. There is no pulmonic valvular stenosis. There is trace pulmonic regurgitation. Great Vessels: The aortic root is normal size. The ascending aorta is normal in size. The pulmonary artery is normal size. The IVC is of normal diameter and collapses greater than 50% with a sniff. This suggests a low right atrial pressure of 3 mm Hg. Pericardium/ Pleura There is no pericardial effusion. There is no pleural effusion. MMode/2D Measurements & Calculations LVIDd: 4.8 cm LVOT diam: 1.7 cm LVIDs: 3.3 cm Ao root diam: 2.6 cm FS: 32.0 % asc Aorta Diam: 3.4 cm IVSd: 0.86 cm LVPWd: 0.87 cm LV madden. diameter/BSA (cm/m^2): 2.6 LV sys. diameter/BSA (cm/m^2): 1.8 LA A2 area: 16.8 cm2 RA long axis: 5.0 cm LA A4 area: 19.7 cm2 RA area: 14.7 cm2 LA length (vol): 5.9 cm RA vol: 36.6 ml LA vol: 47.7 ml RA : 20.1 ml/m2 LA vol index: 26.2 ml/m2 TAPSE: 2.3 cm Doppler Measurements & Calculations Ao V2 max: 166.4 cm/sec LVOT Max Damian: 109.3 cm/sec Ao V2 mean: 108.8 cm/sec LV V1 max P.8 mmHg Ao max P.1 mmHg LV V1 VTI: 23.8 cm Ao mean P.5 mmHg KAE(I,D): 1.5 cm2 Ao V2 VTI: 38.5 cm KAE(V,D): 1.5 cm2 sev ratio: 0.62 KAE indexed to BSA (cm^2/m^2): 0.80 MV E max damian: 88.8 cm/sec TR max damian: 177.2 cm/sec MV A max damian: 78.8 cm/sec TR max P.8 mmHg MV E/A: 1.1 PA V2 max: 91.7 cm/sec Med Peak E' Damian: 6.6 cm/sec PA V2 mean: 65.1 cm/sec E/E' med: 13.5 PA mean P.9 mmHg Lat Peak E' Damian: 7.0 cm/sec PA pr(Accel): 19.1 mmHg E/E' lat: 12.7 E/e' average: 13.1 MV dec time: 0.21 sec SV(LVOT): 56.0 ml Electronically signed by: Angela Morgan M.D. on Reading Physician:02/17/2023 12:52 AM
== END ==
PROVIDERS: Family Provider Family Medicine; PCP Family Medicine; Referring Provider Internal Medicine Cardiovascular Disease; Visit Provider Internal Medicine Cardiovascular Disease
DX: R00.2 Palpitations (principal); I10 Essential (primary) hypertension
CPT/HCPCS: 93306

== ENCOUNTER → 2023-06-18 09:21 | Outpatient (CLI) | payer OTHER, SELFPAY ==
[2023-06-18 19:28] LABS: Alanine Aminotransferase 24 IU/L (<35); Albumin 4.4 g/dL (3.5-5.0); Albumin Globulin Ratio 1.4 (1.0-2.8); Alkaline Phosphatase 43 U/L (38-126); Aspartate Aminotransferase 28 IU/L (14-36); BUN Creatinine Ratio 22.8 (6-22); Bilirubin Total 0.7 mg/dL (0.2-1.3); Blood Urea Nitrogen 13 mg/dL (7-17); Calcium 9.5 mg/dL (8.4-10.2); Carbon Dioxide 28 mmol/L (22-32); Chloride 102 mmol/L (98-107); Estimated Glomerular Filt Rate > 60 mL/min (>60); Globulin 3.1 g/dL (1.7-4.1); Glucose 86 mg/dL (70-100); HEMOLYSIS < 15 (0-50); Potassium 3.7 mmol/L (3.4-5.1); Sodium 137 mmol/L (137-145); Total Protein 7.5 g/dL (6.3-8.2)
[2023-06-18 20:00] LABS: Collection Time Urine 24 Hours; Creatinine 24 Hour Urine 1416 mg/day (800-1800); Creatinine Urine Random 47.2 mg/dL; Total Volume Urine 3000 mL
[2023-06-22 20:36] LABS: Metanephrine,Plasma 16.8 pg/mL (0.0-88.0)
[2023-06-27 00:11] LABS: Normetanephrine Total 582 ug/24 hr (131-612); Urine, Metanephrine 38 ug/L (Undefined); Urine, Normetanephrine 194 ug/L (Undefined)
[2023-06-28 13:24] LABS: Aldosterone/Renin Activity Rat 19.4; Plama Renin, LC/MS/MS 0.341
== END ==
PROVIDERS: Family Provider Family Medicine; PCP Family Medicine; Visit Provider Family Medicine
DX: R07.89 Other chest pain (principal); I10 Essential (primary) hypertension; R00.2 Palpitations
CPT/HCPCS: 80053; 82088; 82570; 83835; 84244

== ENCOUNTER → 2023-11-09 15:12 | Outpatient (CLI) | payer OTHER, SELFPAY ==
--- NOTE | 2023-11-09 19:23 | DI.NM.S_ITS ---
DATE OF SERVICE: EXERCISE PERFUSION STUDY INDICATION: Chest pressure, palpitation. Patient underwent exercise stress test under the supervision of an attending staff using standard David protocol. The patient walked on David protocol for 9 minutes and 50 seconds, achieved maximum heart rate of 168, which was 100% of target heart rate. Resting blood pressure 144/90 and peak blood pressure 206/128 mmHg. At the end of recovery, blood pressure decreased to 170/112 mmHg. Baseline rhythm was sinus. During stress, no convincing ischemic changes seen. Rare PVCs. Had shortness of breath. No chest pain. Achieved 12.8 METs of workload. FOREST -3%. CONCLUSION: Exercise stress test is negative for inducible ischemia. Fair exercise tolerance. Hypertensive blood pressure response as stated above. No anginal symptoms. Occasional PVCs without any significant arrhythmias. Normal recovery. Overall, low-risk exercise stress test. Consider optimal blood pressure management. Shelbie Mansfield - CHRISTIE/digna/RAJESH doc#: [id number]/job#: [id number] dd: 11/09/2023 17:42:00 dt: 11/09/2023 18:57:00 DICTATING /COPIES TO: Paulo Lacey MD COPIES MNE: KEENAN;
== END ==
PROVIDERS: Family Provider Family Medicine; PCP Family Medicine; Referring Provider Family Medicine; Visit Provider Family Medicine
DX: R07.89 Other chest pain (principal); F41.9 Anxiety disorder, unspecified; I10 Essential (primary) hypertension; E78.5 Hyperlipidemia, unspecified
CPT/HCPCS: 93017

== ENCOUNTER → 2023-12-21 14:11 | Outpatient (CLI) | payer OTHER, SELFPAY ==
--- NOTE | 2023-12-21 14:12 | DI.US.S_ITS ---
PROCEDURE: US THYROID INDICATIONS: thyroid nodule TECHNIQUE: Real-time scanning was performed of the thyroid gland, with image documentation. COMPARISON: [facility], [place], US THYROID, 11/29/2022, 10:54. FINDINGS: Thyroid: Right lobe measures 6.1 x 2.0 x 2.0 cm. Left lobe measures 6.9 x 1.9 x 2.0 cm. Isthmus is 0.6 cm thick. Echotexture is homogeneous. Nodule number: 1 Location: Left inferior Size: 2.0 x 1.4 x 1.7 cm compared to 1.8 x 1.3 x 1.4 cm. Composition: Solid Echogenicity: Hypoechoic Shape: wider than tall. Margins: Smooth Echogenic foci: None Total points: 4 ACR TI-RADS category: 4 Nodule number: 2 Location: Left superior Size: 1.1 x 0.6 x 0.9cm. Composition: Partially cystic Echogenicity: Hypoechoic Shape: wider than tall. Margins: Smooth Echogenic foci: None Total points: 3 ACR TI-RADS category: 3 IMPRESSION: Category 1 lesion demonstrates minimal interval increase in size since 2022. It is noted this lesion underwent FNA in 2022. Lesion 2 is considered category 3. No additional follow-up based on criteria below. ACR TI-RADS definitions and recommendations: TI-RADS 1 (benign): 0 points. FNA not needed. TI-RADS 2 (not suspicious): 2 points. FNA not needed. TI-RADS 3 (mildly suspicious): 3 points. * FNA if 2.5 cm or larger, follow up if 1.5 cm or larger (at 1, 3, and 5 years). TI-RADS 4 (moderately suspicious): 4-6 points. * FNA if 1.5 cm or larger, follow up if 1 cm or larger (at 1, 2, 3, and 5 years). TI-RADS 5 (highly suspicious): 7 points or more. * FNA if 1 cm or larger, follow up if 0.5 cm or larger (every year for 5 years). Dictated by: Angella Barbosa M.D. on 12/21/2023 at 17:57 Approved by: Angella Barbosa M.D. on 12/21/2023 at 18:00
== END ==
LOC: US 14:11
PROVIDERS: Family Provider Family Medicine; PCP Family Medicine; Referring Provider Family Medicine; Visit Provider Family Medicine
DX: E04.2 Nontoxic multinodular goiter (principal)
CPT/HCPCS: 76536

== ENCOUNTER → 2023-12-22 08:24 | Outpatient (CLI) | payer OTHER, SELFPAY ==
--- NOTE | 2023-12-22 08:26 | DI.MG.S_ITS ---
BILATERAL DIGITAL SCREENING MAMMOGRAM 3D/2D WITH CAD: 12/22/2023 CLINICAL: Routine screening. Comparison is made to exams dated: 11/13/2018 mammogram, 11/10/2021 mammogram - [facility], and 11/29/2022 mammogram - [facility]. There are scattered areas of fibroglandular density (category b / 25%-50% glandular tissue). Current study was also evaluated with a Computer Aided Detection (CAD) system. No significant masses, calcifications, or other findings are seen in either breast. There has been no significant interval change. IMPRESSION: NEGATIVE There is no mammographic evidence of malignancy. A 1 year screening mammogram is recommended. Based on the Tyrer Cuzick model (a risk assessment model) the patient's lifetime risk is 5.9% and her 10 year risk is 1.5%. According to the ACR, ACS, and NCCN guidelines, an annual breast MRI exam along with mammogram is recommended if the patient's lifetime risk is 20% or greater. This exam was interpreted at Station ID: [id number]. NOTE: For mammograms, a report in lay terms will be sent to the patient. Approximately 15% of breast malignancies will not be visualized mammographically. In the management of a palpable breast mass, a negative mammogram must not discourage biopsy of a clinically suspicious lesion. Electronically Signed By: Mavis hill/berta:12/24/2023 12:55:15 letter sent: Normal Exam ACR BI-RADS Category 1: Negative [id number]
[2023-12-22 09:07] LABS: Add Manual Diff / Slide Review NO; Basophils Absolute Auto 100 /uL (0-100); Basophils Percent Auto 1.3 % (0-2); Eosinophils Absolute Auto 300 /uL (0-450); Eosinophils Percent Auto 5.5 % (2-4); Hematocrit 40.2 % (36-46); Hemoglobin 13.7 g/dL (12.0-16.0); Lymphocytes Absolute Auto 1900 /uL (1100-4500); Lymphocytes Percent Auto 32.4 % (25-40); Mean Corpuscular HGB Conc 34.1 % (30-36); Mean Corpuscular Hemoglobin 28.7 PG (26-34); Monocytes Absolute Auto 400 /uL (0-900); Monocytes Percent Auto 7.5 % (3-14); Neutrophils Absolute Auto 3100 /uL (1500-7000); Neutrophils Percent Auto 53.3 % (50-75); Platelet Count 288 X10^3/uL (150-400); Red Blood Cell Count 4.78 X10^6/uL (4.0-5.2); Red Cell Distribution Width 12.9 % (11.6-14.8); White Blood Cell Count 5.8 X10^3/uL (4.5-11.0)
[2023-12-22 10:27] LABS: BUN Creatinine Ratio 18.4 (6-22); Blood Urea Nitrogen 14 mg/dL (7-17); Calcium 9.6 mg/dL (8.4-10.2); Carbon Dioxide 28 mmol/L (22-32); Chloride 98 mmol/L (98-107); Cholesterol 170 mg/dL (140-199); Estimated Glomerular Filt Rate > 60 mL/min (>60); Glucose 92 mg/dL (70-100); HDL Cholesterol 50 mg/dL (40-60); HEMOLYSIS < 15 (0-50); LDL Cholesterol Calculated 107 mg/dL (<100); Potassium 3.8 mmol/L (3.4-5.1); Sodium 134 mmol/L (137-145); Triglycerides 64 mg/dL (35-150)
[2023-12-22 10:56] LABS: TSH w/ Reflex to FT4 1.75 uIU/mL (0.47-4.68)
== END ==
LOC: MAMMO 08:25
PROVIDERS: Family Provider Family Medicine; PCP Family Medicine; Referring Provider Family Medicine; Visit Provider Family Medicine
DX: Z12.31 Encounter for screening mammogram for malignant neoplasm of breast (principal); E78.5 Hyperlipidemia, unspecified; E05.90 Thyrotoxicosis, unspecified without thyrotoxic crisis or storm; E04.1 Nontoxic single thyroid nodule; E87.1 Hypo-osmolality and hyponatremia
CPT/HCPCS: 36415; 77063; 77067; 80048; 80061; 84443; 85025

== ENCOUNTER → 2024-05-05 11:23 | Outpatient (CLI) | payer OTHER, SELFPAY ==
[2024-05-05 19:09] LABS: Appearance Urine UA CLEAR; Bilirubin Urine UA NEGATIVE (NEGATIVE); Color Urine UA YELLOW; Glucose Urine UA NEGATIVE (Negative); Ketones Urine UA NEGATIVE (NEGATIVE); Leukocyte Esterase Urine UA NEGATIVE (NEGATIVE); Nitrite Urine UA NEGATIVE (Negative); Occult Blood Urine UA 2+ (Negative); Protein Urine UA NEGATIVE (Negative); Specific Gravity Urine UA 1.015 (1.000-1.035); Urobilinogen Urine UA 0.2 E.U./dL (0.2)
[2024-05-05 19:11] LABS: Add Manual Diff / Slide Review NO; Basophils Absolute Auto 100 /uL (0-100); Basophils Percent Auto 0.8 % (0-2); Eosinophils Absolute Auto 600 /uL (0-450); Eosinophils Percent Auto 7.3 % (2-4); Hematocrit 37.1 % (36-46); Hemoglobin 12.4 g/dL (12.0-16.0); Lymphocytes Absolute Auto 1000 /uL (1100-4500); Lymphocytes Percent Auto 11.8 % (25-40); Mean Corpuscular HGB Conc 33.4 % (30-36); Mean Corpuscular Hemoglobin 28.6 PG (26-34); Mean Corpuscular Volume 85.6 fL (80-100); Monocytes Absolute Auto 900 /uL (0-900); Monocytes Percent Auto 10.4 % (3-14); Neutrophils Absolute Auto 5700 /uL (1500-7000); Neutrophils Percent Auto 69.7 % (50-75); Platelet Count 325 X10^3/uL (150-400); Red Blood Cell Count 4.33 X10^6/uL (4.0-5.2); Red Cell Distribution Width 12.9 % (11.6-14.8); White Blood Cell Count 8.2 X10^3/uL (4.5-11.0)
[2024-05-05 19:39] LABS: Bacteria Urine Occasional (0-1); Culture Indicated Urine Cult Not Indicated; RBC Urine 1-5/HPF (0-5/HPF); Squamous Epithelial Cell Urine 0-1 /HPF (0-5/HPF); Urine Volume 10mL (spun); WBC Urine 0-1/HPF (0-5/HPF)
[2024-05-05 20:12] LABS: TSH w/ Reflex to FT4 0.89 uIU/mL (0.47-4.68)
== END ==
PROVIDERS: Family Provider Family Medicine; PCP Family Medicine; Visit Provider Physician Assistant
DX: R53.81 Other malaise (principal); R53.83 Other fatigue; R50.9 Fever, unspecified; E05.90 Thyrotoxicosis, unspecified without thyrotoxic crisis or storm
CPT/HCPCS: 81001; 84443; 85025

== ENCOUNTER → 2024-05-17 08:48 | Outpatient (CLI) | payer OTHER, SELFPAY ==
[2024-05-17 10:33] LABS: Appearance Urine UA CLEAR; Bilirubin Urine UA NEGATIVE (NEGATIVE); Color Urine UA YELLOW; Glucose Urine UA NEGATIVE (Negative); Ketones Urine UA NEGATIVE (NEGATIVE); Leukocyte Esterase Urine UA 1+ (NEGATIVE); Nitrite Urine UA NEGATIVE (Negative); Occult Blood Urine UA NEGATIVE (Negative); Protein Urine UA NEGATIVE (Negative); Specific Gravity Urine UA <=1.005 (1.000-1.035); Urobilinogen Urine UA 0.2 E.U./dL (0.2)
[2024-05-17 10:35] LABS: Hemoglobin 12.6 g/dL (12.0-16.0); Mean Corpuscular HGB Conc 34.1 % (30-36); Mean Corpuscular Hemoglobin 28.6 PG (26-34); Mean Corpuscular Volume 83.8 fL (80-100); Platelet Count 434 X10^3/uL (150-400); Red Blood Cell Count 4.42 X10^6/uL (4.0-5.2); Red Cell Distribution Width 13.5 % (11.6-14.8); White Blood Cell Count 7.6 X10^3/uL (4.5-11.0)
[2024-05-17 10:47] LABS: Urine Volume 10mL (spun)
[2024-05-17 10:48] LABS: Bacteria Urine None Seen; Culture Indicated Urine Specimen Cultured; RBC Urine None Seen (0-5/HPF); Squamous Epithelial Cell Urine 0-1 /HPF (0-5/HPF); WBC Urine 1-5/HPF (0-5/HPF)
[2024-05-17 11:12] LABS: Neutrophils Absolute Manual 4712 /uL (3000-5900); RBC Morphology Normal Morphology; Total Cells Counted 100
[2024-05-17 11:24] LABS: Alanine Aminotransferase 37 IU/L (<35); Albumin 4.3 g/dL (3.5-5.0); Albumin Globulin Ratio 1.5 (1.0-2.8); Alkaline Phosphatase 49 U/L (38-126); Aspartate Aminotransferase 36 IU/L (14-36); BUN Creatinine Ratio 23.1 (6-22); Bilirubin Total 0.6 mg/dL (0.2-1.3); Blood Urea Nitrogen 15 mg/dL (7-17); Calcium 9.3 mg/dL (8.4-10.2); Carbon Dioxide 26 mmol/L (22-32); Chloride 97 mmol/L (98-107); Estimated Glomerular Filt Rate > 60 mL/min (>60); Globulin 2.9 g/dL (1.7-4.1); Glucose 75 mg/dL (70-100); HEMOLYSIS < 15 (0-50); Potassium 4.4 mmol/L (3.4-5.1); Sodium 132 mmol/L (137-145); Total Protein 7.2 g/dL (6.3-8.2)
== END ==
PROVIDERS: Family Provider Family Medicine; PCP Family Medicine; Referring Provider Physician Assistant; Visit Provider Physician Assistant
DX: D72.810 Lymphocytopenia (principal); R31.9 Hematuria, unspecified; R53.81 Other malaise; R53.83 Other fatigue; E87.1 Hypo-osmolality and hyponatremia; I10 Essential (primary) hypertension
CPT/HCPCS: 36415; 80053; 81001; 85025; 87086

== ENCOUNTER → 2024-06-06 09:01 | Outpatient (CLI) | payer OTHER, SELFPAY ==
[2024-06-06 18:08] LABS: Add Manual Diff / Slide Review NO; Basophils Absolute Auto 0 /uL (0-100); Basophils Percent Auto 0.9 % (0-2); Eosinophils Absolute Auto 300 /uL (0-450); Eosinophils Percent Auto 6.1 % (2-4); Hematocrit 37.9 % (36-46); Hemoglobin 12.9 g/dL (12.0-16.0); Lymphocytes Absolute Auto 1600 /uL (1100-4500); Lymphocytes Percent Auto 30.2 % (25-40); Mean Corpuscular Hemoglobin 28.9 PG (26-34); Mean Corpuscular Volume 84.9 fL (80-100); Monocytes Absolute Auto 400 /uL (0-900); Monocytes Percent Auto 7.5 % (3-14); Neutrophils Absolute Auto 2900 /uL (1500-7000); Neutrophils Percent Auto 55.3 % (50-75); Platelet Count 293 X10^3/uL (150-400); Red Blood Cell Count 4.47 X10^6/uL (4.0-5.2); Red Cell Distribution Width 13.8 % (11.6-14.8); White Blood Cell Count 5.2 X10^3/uL (4.5-11.0)
[2024-06-06 18:18] LABS: Alanine Aminotransferase 31 IU/L (<35); Albumin 4.2 g/dL (3.5-5.0); Albumin Globulin Ratio 1.5 (1.0-2.8); Alkaline Phosphatase 47 U/L (38-126); Aspartate Aminotransferase 32 IU/L (14-36); BUN Creatinine Ratio 21.2 (6-22); Bilirubin Total 0.5 mg/dL (0.2-1.3); Blood Urea Nitrogen 14 mg/dL (7-17); Calcium 9.2 mg/dL (8.4-10.2); Carbon Dioxide 31 mmol/L (22-32); Chloride 97 mmol/L (98-107); Estimated Glomerular Filt Rate > 60 mL/min (>60); Globulin 2.8 g/dL (1.7-4.1); Glucose 90 mg/dL (70-100); HEMOLYSIS < 15 (0-50); Potassium 3.6 mmol/L (3.4-5.1); Sodium 136 mmol/L (137-145)
== END ==
PROVIDERS: Family Provider Family Medicine; PCP Family Medicine; Visit Provider Physician Assistant
DX: R79.89 Other specified abnormal findings of blood chemistry (principal); E87.1 Hypo-osmolality and hyponatremia
CPT/HCPCS: 80053; 85025

== ENCOUNTER → 2024-10-02 11:17 | Outpatient (CLI) | payer OTHER, SELFPAY ==
[2024-10-02 19:50] LABS: Cholesterol 224 mg/dL (140-199); HDL Cholesterol 49 mg/dL (40-60); LDL Cholesterol Calculated 160 mg/dL (<100); Triglycerides 77 mg/dL (35-150)
[2024-10-02 20:19] LABS: TSH w/ Reflex to FT4 1.32 uIU/mL (0.47-4.68)
== END ==
PROVIDERS: Family Provider Family Medicine; PCP Family Medicine; Visit Provider Family Medicine
DX: E05.90 Thyrotoxicosis, unspecified without thyrotoxic crisis or storm (principal); Z13.220 Encounter for screening for lipoid disorders; E04.1 Nontoxic single thyroid nodule
CPT/HCPCS: 80061; 84443

== ENCOUNTER → 2024-10-29 11:11 | Outpatient (CLI) | payer OTHER, SELFPAY ==
--- NOTE | 2024-10-29 11:13 | DI.US.S_ITS ---
PROCEDURE: US THYROID INDICATIONS: thyroid nodule TECHNIQUE: Real-time scanning was performed of the thyroid gland, with image documentation. COMPARISON: [facility], [place], US THYROID, 11/29/2022, 10:54. [facility], [place], US THYROID, 12/21/2023, 14:43. FINDINGS: Thyroid: Right lobe measures 5.1 x 2.3 x 1.8 cm. Left lobe measures 6.0 x 1.8 x 2.2 cm. Isthmus is 0.5 cm thick. Echotexture is homogeneous. Previously seen left superior thyroid nodule is no longer visualized. Nodule number: 1 (previously labeled as nodule 2) Location: Inferior thyroid lobe Size: 2.2 x 1.5 x 1.7 cm. Composition: Solid Echogenicity: Hypoechoic Shape: wider than tall. Margins: Smooth Echogenic foci: None Total points: 4 ACR TI-RADS category: TIRADS 4 (moderately suspicious) IMPRESSION: 2.2 cm left inferior TIRADS 4 (moderately suspicious) nodule appear stable to minimally larger in size. This nodule had undergone previous FNA. Recommend continued clinical and imaging surveillance with follow-up ultrasound in 1 year. ACR TI-RADS definitions and recommendations: TI-RADS 1 (benign): 0 points. FNA not needed. TI-RADS 2 (not suspicious): 2 points. FNA not needed. TI-RADS 3: 3 points. * FNA if 2.5 cm or larger, follow up if 1.5 cm or larger (at 1, 3, and 5 years). TI-RADS 4: 4-6 points. * FNA if 1.5 cm or larger, follow up if 1 cm or larger (at 1, 2, 3, and 5 years). TI-RADS 5: 7 points or more. * FNA if 1 cm or larger, follow up if 0.5 cm or larger (every year for 5 years). Dictated by: Max Mcclure M.D. on 10/30/2024 at 9:28 Approved by: Max Mcclure M.D. on 10/30/2024 at 9:34
== END ==
LOC: US 11:11
PROVIDERS: Family Provider Family Medicine; PCP Family Medicine; Referring Provider Family Medicine; Visit Provider Family Medicine
DX: E04.1 Nontoxic single thyroid nodule (principal); E05.90 Thyrotoxicosis, unspecified without thyrotoxic crisis or storm
CPT/HCPCS: 76536

== ENCOUNTER → 2025-02-17 10:05 | Outpatient (CLI) | payer OTHER, SELFPAY ==
[2025-02-17 19:01] LABS: Add Manual Diff / Slide Review NO; Hematocrit 40.3 % (36-46); Hemoglobin 13.7 g/dL (12.0-16.0); Lymphocytes Absolute Auto 1700 /uL (1100-4500); Mean Corpuscular HGB Conc 33.9 % (30-36); Mean Corpuscular Hemoglobin 29.0 PG (26-34); Mean Corpuscular Volume 85.4 fL (80-100); Platelet Count 271 X10^3/uL (150-400)
[2025-02-17 19:09] LABS: Blood Urea Nitrogen 15 mg/dL (7-17); Calcium 9.2 mg/dL (8.4-10.2); Carbon Dioxide 29 mmol/L (22-32); Chloride 101 mmol/L (98-107); Cholesterol 187 mg/dL (140-199); Estimated Glomerular Filt Rate > 60 mL/min (>60); Glucose 85 mg/dL (70-99); HDL Cholesterol 54 mg/dL (40-60); HEMOLYSIS < 15 (0-50); Potassium 4.1 mmol/L (3.4-5.1); Sodium 137 mmol/L (137-145); Triglycerides 77 mg/dL (35-150)
[2025-02-17 19:37] LABS: TSH w/ Reflex to FT4 0.97 uIU/mL (0.47-4.68)
== END ==
PROVIDERS: Family Provider Family Medicine; PCP Family Medicine; Visit Provider Family Medicine
DX: E78.5 Hyperlipidemia, unspecified (principal); I10 Essential (primary) hypertension; E05.90 Thyrotoxicosis, unspecified without thyrotoxic crisis or storm; F41.0 Panic disorder [episodic paroxysmal anxiety]; D75.839 Thrombocytosis, unspecified
CPT/HCPCS: 80048; 80061; 84443; 85025